=== PATIENT | male | born 1985 | race Two or more races ===

== ENCOUNTER 2021-04-30 13:13 | Emergency (ER) | payer MEDICAID, OTHER ==
[~2021-04-30] VITALS: Ht 167.6 cm; Wt 127.0 kg
[2021-04-30 14:34] VITALS: BP 120/77
[2021-04-30] MEDS ORDERED: IBUPROFEN 800 MG TAB PO ONE (15:45)
== END 2021-04-30 16:41 | disposition home or self-care (01) ==
LOC: ER 13:13
DX: S93.402A Sprain of unspecified ligament of left ankle, initial encounter (principal); S50.02XA Contusion of left elbow, initial encounter; W18.39XA Other fall on same level, initial encounter; Y93.89 Activity, other specified; Y92.89 Other specified places as the place of occurrence of the external cause; Y99.8 Other external cause status
CPT/HCPCS: 73070; 73610

== ENCOUNTER 2021-05-05 10:41 | Emergency (ER) | payer OTHER ==
[~2021-05-05] VITALS: Ht 167.6 cm; Wt 127.0 kg
[2021-05-05 11:55] VITALS: BP 153/75
== END 2021-05-05 12:02 | disposition home or self-care (01) ==
LOC: ER 10:41
DX: S93.402A Sprain of unspecified ligament of left ankle, initial encounter (principal); X50.1XXA Overexertion from prolonged static or awkward postures, initial encounter; Y93.89 Activity, other specified; Y92.89 Other specified places as the place of occurrence of the external cause; Y99.8 Other external cause status

== ENCOUNTER 2021-05-08 11:07 | Emergency (ER) | payer MEDICAID, OTHER ==
[~2021-05-08] VITALS: Ht 167.6 cm; Wt 127.0 kg
[2021-05-08 13:37] VITALS: BP 151/89
== END 2021-05-08 14:33 | disposition home or self-care (01) ==
LOC: ER 11:07
DX: S93.402A Sprain of unspecified ligament of left ankle, initial encounter (principal); X58.XXXA Exposure to other specified factors, initial encounter; Y93.89 Activity, other specified; Y92.89 Other specified places as the place of occurrence of the external cause; Y99.8 Other external cause status